=== PATIENT | female | born 1985 | race Caucasian/White ===

== ENCOUNTER → 2016-09-08 | Outpatient (CLI) | payer OTHER ==
[~2016-09-08] MED LIST: ACETAMINOPHEN PO; AUGMENTIN875 MG PO; CLINDAMYCIN HC300 MG PO; DIPHENYDRAMINE25 MG PO; FLEXERIL PO; FLEXERIL10 MG PO; HYDROCODON-ACE1 EAC5 PO; HYDROCODON-ACE1 EAC7 PO; IBUPROFEN PO; INTUNIV3 MG PO; KEFLEX500 MG PO; MEDROL PO; NEURONTIN300 MG PO; NEURONTIN600 MG PO; NO MEDICATIONS; ORUDIS75 M1 PO; TIZANIDINE HCL2 MG PO; TOPIRAMATE100 MG PO; ULTRAM PO; VIBRAMYCIN100 M1 PO; VICODIN 5/500 T1 TAB PO; VOLTAREN50 MG PO; VOLTAREN75 MG PO; WELLBUTRIN XL150 M1 PO
--- NOTE | ~2016-09-08 | CR63 ---
[facility] A Service of [facility] RADIOLOGY TEXT RESULTS PATIENT: SEAN LOPEZ LOCATION: [facility] : 81 UNIT #: [id number] AGE: [address]: David Sexton MD SEX: F ORDER DR: [id number] [facility] [address] [place], [place] [address] [id number] O MR#: [id number] Acc #: [id number] NAME: SEAN LOPEZ. : 1985 SEX: F STUDY DATE/TIME: 09/08/2016 12:08 UNIT: [facility] ROOM: STUDY DESCRIPTION: CR Chest 2 View Attending Physician: David Sexton M.D. Referring Physician: David Sexton M.D. Ordering Physician: David Sexton M.D. Primary Care Physician: Brent Bedoya M.D. MEDICAL IMAGING REPORT This report is preliminary unless electronic signature is present EXAM Chest, PA and lateral. DATE OF EXAM 09/08/2016 HISTORY Productive cough, shortness of breath on exertion and wheezing for 1 year. Chest congestion. Benign essential hypertension. FINDINGS PA and lateral examination of the chest upright shows a good expansion of the parenchyma with a normal distribution of the pulmonary vascularity. There is no indication of congestion, effusion, infiltrate, tumor, or nodular density. The pleural reflections and diaphragmatic contours are normal. The cardiac silhouette and mediastinal anatomy is within normal limits. IMPRESSION Normal chest. Dictated by... Quang Jaime M.D. THIS IS AN ELECTRONICALLY VERIFIED REPORT Quang Jaime M.D. at 09/09/2016 7:48 AM IHSAN/kathy TD: 09/08/2016 16:42 [facility] A Service of [facility] RADIOLOGY TEXT RESULTS PATIENT: SEAN LOPEZ [facility] [id number] : 81 UNIT #: [id number] AGE: [address]: David Sexton MD SEX: F ORDER DR: JOB #: [id number] MEDICAL IMAGING REPORT Page 1 of 1 COPY
== END | disposition home or self-care (01) ==
LOC: CRAD 11:28
DX: R05 Cough (principal); I10 Essential (primary) hypertension
CPT/HCPCS: 71020

== ENCOUNTER → 2016-09-17 | Outpatient (CLI) | payer OTHER ==
--- NOTE | ~2016-09-17 | US98 ---
[facility] A Service of [facility] RADIOLOGY TEXT RESULTS PATIENT: SEAN LOPEZ LOCATION: [facility] : 83 UNIT #: [id number] AGE: [address]: SENA BLAIR SEX: F ORDER DR: [id number] [facility] [address] [place], [place] [address] [id number] O MR#: [id number] Acc #: [id number] NAME: SEAN LOPEZ. : 1985 SEX: F STUDY DATE/TIME: 09/17/2016 11:09 UNIT: [facility] ROOM: STUDY DESCRIPTION: US Pelvic Non-OB Complete Attending Physician: Sena Blair M.D. Ordering Physician: Sena Blair M.D. Primary Care Physician: Lyndsey Bedoya M.D. MEDICAL IMAGING REPORT This report is preliminary unless electronic signature is present EXAM Pelvic ultrasound. INDICATION Abnormal MRI which was performed 3 weeks ago at [facility] showed an ovarian cyst. Patient also reports left lower quadrant pain for 10 years. Last normal menstrual period was August 19, 2016 TECHNIQUE Bucio-scale, color Doppler, and spectral Doppler waveform analysis was performed through the pelvis both transabdominally and transvaginally. FINDINGS This patient's endometrium is thickened, measuring up to 1.9 cm. There is also some fluid seen within the endometrial canal. This is thickened even for a 31-year-old woman. Left ovary contains a complex predominantly cystic structure which measures up to 2.7 x 2.4 x 2.3 cm. Its appearance is most in keeping with a hemorrhagic cyst on the right ovary which is seen only on transvaginal images. This patient is noted to have a hypoechoic area which appears to be solid and is accompanied by extensive shadowing. Clinical significance is uncertain. Its appearance is not classic for a dermoid cyst, although certainly this would be in the differential. It measures 1.1 x 1.2 x 1.2 cm. No free fluid is seen within the cul-de-sac. IMPRESSION 1. Hypoechoic solid appearing area is identified within the right ovary with extensive shadowing noted. Clinical significance is uncertain. A dermoid cyst would be in the differential, although again this is a solid appearing lesion. Further evaluation with pelvic MRI is recommended. 2. This patient has an apparent hemorrhagic cyst arising from the left ovary. This could also be further assessed with pelvic MRI. [facility] A Service of [facility] RADIOLOGY TEXT RESULTS PATIENT: SEAN LOPEZ LOCATION: [facility] : 83 UNIT #: [id number] AGE: [address]: SENA BLAIR SEX: F ORDER DR: 3. Patient's endometrium does appear thickened even for a 31-year-old woman. This may simply be related to stage of menstrual cycle, however, again attention to it on a pelvic MRI is suggested. Dictated by... Francie Santacruz M.D. THIS IS AN ELECTRONICALLY VERIFIED REPORT Francie Santacruz M.D. at 09/20/2016 4:49 PM AFF/rui TD: 09/17/2016 17:08 JOB #: [id number] MEDICAL IMAGING REPORT Page 1 of 1 COPY
== END | disposition home or self-care (01) ==
LOC: CWCC 10:58
DX: N83.209 Unspecified ovarian cyst, unspecified side (principal); N83.9 Noninflammatory disorder of ovary, fallopian tube and broad ligament, unspecified; N83.202 Unspecified ovarian cyst, left side; R93.8 Abnormal findings on diagnostic imaging of other specified body structures
CPT/HCPCS: 76830; 76856

== ENCOUNTER 2016-09-21 14:48 | Emergency (ER) | payer OTHER ==
--- NOTE | ~2016-09-21 | CR142 ---
[facility] A Service of [facility] RADIOLOGY TEXT RESULTS PATIENT: SEAN LOPEZ LOCATION: [facility] : 83 UNIT #: [id number] AGE: [address]: Natalia Jaimes MD SEX: F ORDER DR: [id number] [facility] [address] [place], [place] [address] [id number] MR#: [id number] Acc #: [id number] NAME: SEAN LOPEZ. : 1985 SEX: F STUDY DATE/TIME: 09/21/2016 16:04 UNIT: [facility] ROOM: STUDY DESCRIPTION: CR Hand Min 3 Views Rt Attending Physician: Natalia Jaimes M.D. Referring Physician: Kory Gonzalez M.D. Ordering Physician: Jose Angel Hannah M.D. Primary Care Physician: Lyndsey Bedoya M.D. MEDICAL IMAGING REPORT This report is preliminary unless electronic signature is present EXAM Right hand series, 09/21/2016. HISTORY Trauma, punched glass in hospital cafe. Laceration. Pain, bleeding, evaluate for foreign body. Possible glass. FINDINGS AP lateral and oblique radiographs of the right hand are presented. No traumatic fracture or malalignment. The joint spaces are intact. There is extensive bandaging material overlying the hand circumferentially. Superimposed over palmar aspect of hand between the second and third metacarpal bones on the AP view there is an approximately 2 to 4 mm radiodensity. On the lateral view, it is somewhat unclear if this is along the skin surface or deep to the skin surface. The appearance is concerning for possible small foreign body/glass fragment. Please correlate with exam. There is a linear, approximately 2 mm radiodensity on the skin surface along the ulnar aspect of the fifth digit at level of the proximal phalanx. There are radiodensities projecting over the distal fourth digit, ulnar aspect of the nail bed and palmar aspect of distal digit on lateral view. It is possible that these radiodensities associated with the fourth and fifth digits may be within the bandaging material. Please correlate with exam. Consider reassessment with removal of bandaging material. No subcutaneous air is suggested. Dictated by... Nicanor Livingston M.D. THIS IS AN ELECTRONICALLY VERIFIED REPORT Nicanor Livingston M.D. at 09/22/2016 10:25 PM DAPHNEYK/kathy [facility] A Service of [facility] RADIOLOGY TEXT RESULTS PATIENT: SEAN LOPEZ LOCATION: [facility] : 81 UNIT #: [id number] AGE: [address]: Natalia Jaimes MD SEX: F ORDER DR: TD: 09/21/2016 23:22 JOB #: [id number] MEDICAL IMAGING REPORT Page 1 of 1 COPY
[2016-09-21 16:05] LABS: URINE SOURCE CLEAN CATCH
[2016-09-21 16:15] LABS: URINE APPEARANCE CLEAR; URINE BILIRUBIN NEG (NEG); URINE BLOOD NEG (NEG); URINE COLOR YELLOW; URINE GLUCOSE NEG (NEG); URINE KETONE NEG (NEG); URINE LEUKOCYTE ESTERASE NEG (NEG); URINE NITRATE NEG (NEG); URINE PROTEIN 1+ (NEG); URINE SPECIFIC GRAVITY 1.041 (1.003-1.035)
[2016-09-21 16:17] LABS: CULTURE INDICATED? YES; URINE BACTERIA AUWI 1+ (NEGATIVE); URINE SQUAMOUS EPITHELIAL CELL OCC /[HPF]
[2016-09-21 16:26] LABS: AMPHETAMINE NEG (NEG); BARBITURATES NEG (NEG); BENZODIAZEPINES NEG (NEG); COCAINE NEG (NEG); MARIJUANA NEG (NEG); OPIATES POS (NEG); TRICYCLIC ANTIDEPRESSANTS NEG (NEG); U METHADONE NEG (NEG)
[2016-09-21 16:46] LABS: BASOPHIL# 0.1 X10e3 (0-0.3); BASOPHIL% 0.4 % (0-2.5); EOSINOPHIL% 0.1 % (0.0-7.0); HEMATOCRIT 41.3 % (35.0-45.0); HEMOGLOBIN 13.3 gm/dL (12.0-16.0); LYMPHOCYTE# 1.2 X10e3 (1.0-3.5); LYMPHOCYTE% 9.1 % (17.0-45.0); MEAN CORPUSCULAR HGB CONC 32.3 g/dL (30-36); MEAN PLATELET VOLUME 9.2 FL (6.5-11.5); MONOCYTE# 0.6 X10e3 (0-1.0); MONOCYTE% 4.9 % (3.0-12.0); NEUTROPHIL% 85.5 % (40-75); PLATELET COUNT 183 X10e3 (140-420); RED BLOOD COUNT 4.43 X10e (3.90-5.30); RED CELL DISTRIBUTION WIDTH 13.4 % (11.0-15.5); WHITE BLOOD COUNT 12.8 X10e3 (4.0-10.5)
[2016-09-21 16:47] LABS: DIFF IND NO
[2016-09-21 17:09] LABS: ALBUMIN SERUM 4.2 g/dL (3.5-5.0); ALKALINE PHOSPHATASE 64 U/L (32-92); ALT (SGPT) 33 U/L (10-40); AST (SGOT) 24 U/L (10-42); BILIRUBIN,TOTAL 0.7 mg/dL (0.2-2.0); BLOOD UREA NITROGEN 7 mg/dL (9-23); CALCIUM SERUM 8.4 mg/dL (8.4-10.2); CARBON DIOXIDE 20 mmol/L (22-31); CHLORIDE 109 mmol/L (100-111); CREATININE SERUM 0.4 mg/dL (0.6-1.4); GLOM FILT RATE Estimated 136.9 mL/min (>60); GLUCOSE FASTING 99 mg/dL (70-110); POTASSIUM 3.5 mmol/L (3.5-5.1); PROTEIN TOTAL SERUM 7.5 g/dL (6.0-8.3); SALICYLATE <4.0 mg/dL; SODIUM 136 mmol/L (135-145)
[2016-09-21 17:11] LABS: ACETAMINOPHEN <10 ug/mL; ALCOHOL BLOOD <5 mg/dL (0); BILIRUBIN, DIRECT <0.1 mg/dL (0.0-0.2); BILIRUBIN,INDIRECT 0.6 mg/dL (0.0-0.9)
== END 2016-09-21 23:36 ==
LOC: CED 14:48
PROVIDERS: Emergency Medicine
DX: S61.411A Laceration without foreign body of right hand, initial encounter (principal); T48.3X2A Poisoning by antitussives, intentional self-harm, initial encounter; F11.10 Opioid abuse, uncomplicated; F32.9 Major depressive disorder, single episode, unspecified; F17.200 Nicotine dependence, unspecified, uncomplicated; Z98.890 Other specified postprocedural states; X78.8XXA Intentional self-harm by other sharp object, initial encounter; Y92.9 Unspecified place or not applicable
CPT/HCPCS: 12002; 36415; 73130; 80048; 80076; 80307; 81003; 84703; 85025; 87086; 96360; 99285; G0480

== ENCOUNTER 2016-09-21 19:00 | Inpatient (IN) | payer OTHER ==
--- NOTE | ~2016-09-21 | PN ---
Unit #: [id number] #: [id number] Patient: SEAN LOPEZ [id number] [facility] [address] [place] [address] [id number] I MR#: [id number] NAME: SEAN LOPEZ. ROOM: P110 Age: 31 Sex: F Admission Date: 09/22/2016 : 1985 Attending Physician: Aruna Curry M.D. Admitting Physician: Aruna Curry M.D. Primary Care Physician: Ronald Garcia PROGRESS NOTES DATE OF SERVICE: 09/23/2016 SUBJECTIVE Ms. Lopez is a 31-year-old white female with mood disorder, who was seen today and chart was reviewed, and case was discussed with the staff. She appears to be doing much better, and showing significant improvement in her cognitive functioning and her social interacting, asking questions and expressing her concerns. Meanwhile, she has been taking medications and tolerating them fairly well with no reported side effects. MENTAL STATUS EXAMINATION Young white female, who was casually dressed with a fair personal hygiene, appears to be in no acute distress or discomfort. She was awake and alert on interaction with intact orientation. Her mood was anxious with a congruent affect. She denies any suicidal or homicidal ideations. Her insight and judgment remain slightly impaired. TREATMENT PLAN 1. We will continue her on her current medications and treatment protocol. We will monitor her response to the medications and make further adjustments as needed. 2. We will continue to follow up. Dictated by... Ronald Gonzalez/rajni TD: 09/24/2016 08:02 JOB #: [id number] [facility] PROGRESS NOTES Page 1 of 1 X Aruna Curry MD PROGRESS NOTE
--- NOTE | ~2016-09-21 | DS ---
Unit #: [id number] #: [id number] Patient: SEAN LOPEZ [id number] [facility] [address] [place] [address] [id number] I MR#: [id number] NAME: SEAN LOPEZ. ROOM: P110 Age: 31 Sex: F Admission Date: 09/22/2016 : 1985 Discharge Date: 09/25/2016 Attending Physician: Aruna Curry M.D. Primary Care Physician: Lyndsey Bedoya M.D. DISCHARGE SUMMARY IDENTIFYING DATA Ms. Lopez is a 31-year-old, single, white female who is a resident of [place], [place], and was self-referred to the hospital on a voluntary basis. DISCHARGE DIAGNOSES Psychiatric: Bipolar disorder, most recent episode depressed, recurrent, moderate, with psychosis. Medical: Ovarian cyst. Stressors: Moderate psychosocial stressors. HISTORY OF PRESENT ILLNESS Please see initial psychiatric evaluation for details. PAST PSYCHIATRIC HISTORY Please see initial psychiatric evaluation for details. PAST MEDICAL HISTORY Please see initial psychiatric evaluation for details. HOSPITAL COURSE The [facility] and was oriented to the hospital environment. Routine p.r.n. medications were initiated and she was started back on her home medications including her Wellbutrin and Risperdal 0.5 mg b.i.d. was started and she was initially seen to be exhibiting bizarre behavior, though was able to show a fairly decent therapeutic response to Risperdal with improvement in her psychosis and cognitive functioning, and was calm and cooperative and compliant with treatment recommendations, and was willing to continue treatment on an outpatient basis and as such, it was decided that she will be discharged home and will continue treatment on an outpatient basis. DISCHARGE MEDICATIONS Wellbutrin XL 450 mg in the morning for depression and Risperdal 0.5 mg b.i.d. DISCHARGE CONDITION Stable. PROGNOSIS Fair. Unit #: [id number] #: [id number] Patient: SEAN LOPEZ Dictated by... Ronald Gonzalez/cammyl TD: 09/25/2016 15:41 JOB #: [id number] DISCHARGE SUMMARY Page 1 of 1 X Aruna Curry MD DISCHARGE SUMMARY
--- NOTE | ~2016-09-21 | HP ---
Unit #: [id number] #: [id number] Patient: SEAN LOPEZ [id number] [place] [address] [id number] MR#: [id number] NAME: SEAN LOPEZ. ROOM: P110 Age: 31 Sex: F Admission Date: 09/22/2016 : 1985 Attending Physician: Aruna Curry M.D. Admitting Physician: Aruna Curry M.D. Primary Care Physician: Lyndsey Bedoya M.D. HISTORY AND PHYSICAL ADDENDUM SKIN: Warm and dry without rash. She has multiple abrasions and cuts to her right hand and arm. There are sutures placed along the posterior aspect of the hand. There is good skin approximation. No increased redness, swelling, heat or pus is noted. Neurovascular intact. PLAN Keep these areas clean with soap and water. Apply triple antibiotic ointment and apply loose dressing daily. Suture removal in 7 to 10 days. Dictated by... Bárbara RichardACynthia. for Ronald Hendricks/didi TD: 09/22/2016 22:55 JOB #: [id number] HISTORY AND PHYSICAL Page 1 of 1 X Daria Chacon HISTORY AND PHYSICAL
--- NOTE | ~2016-09-21 | PN ---
Unit #: [id number] #: [id number] Patient: SEAN LOPEZ [id number] [facility] [address] [place] [address] [id number] I MR#: [id number] NAME: SEAN LOPEZ. ROOM: P110 Age: 31 Sex: F Admission Date: 09/22/2016 : 1985 Attending Physician: Aruna Curry M.D. Admitting Physician: Aruna Curry M.D. Primary Care Physician: Ronald Garcia PROGRESS NOTES DATE OF SERVICE 09/24/2016 DISCUSSION Ms. Lopez is a 31-year-old white female with mood disorder who was seen today. Chart was reviewed and case was discussed with the staff. She has been anxious, withdrawn, and appears to be doing better and has been calm and cooperative with the treatment recommendations and has been taking the medications and tolerating them fairly well with no reported side effects. MENTAL STATUS EXAMINATION Young white female who is casually dressed with fair personal hygiene, appears to be in no acute distress or discomfort. She was awake and alert on interaction with intact orientation. Her mood is anxious with congruent affect. She denies any suicidal or homicidal ideations. Her insight and judgment remain slightly impaired. TREATMENT PLAN 1. We will continue her on her current treatment protocol. We will monitor her response to the medications and make further adjustments as needed. 2. We will continue to follow up. Dictated by... Ronald Gonzalez/bzg TD: 09/25/2016 08:06 JOB #: [id number] [facility] PROGRESS NOTES Page 1 of 1 X Aruna Curry MD X PROGRESS NOTE
--- NOTE | ~2016-09-21 | HP ---
Unit #: [id number] #: [id number] Patient: SEAN LOPEZ [id number] [place] [address] [id number] I MR#: [id number] NAME: SEAN LOPEZ. ROOM: P110 Age: 31 Sex: F Admission Date: 09/22/2016 : 1985 Attending Physician: Aruna Curry M.D. Admitting Physician: Aruna Curry M.D. Primary Care Physician: Lyndsey Bedoya M.D. HISTORY AND PHYSICAL HISTORY OF PRESENT ILLNESS Sean is a 31 year old admitted to [address] [place] [address] with depression and after overdosing on cough medication. She was medically cleared at [facility] emergency room and then transferred to [facility] for psychiatric care. PAST MEDICAL HISTORY Morbid obesity. PAST SURGICAL HISTORY Nothing reported. ALLERGIES No known drug allergies. SOCIAL HISTORY Smokes 1 pack per day. Denies alcohol and illicit drug use. FAMILY HISTORY Medically noncontributory. REVIEW OF SYSTEMS CONSTITUTIONAL: No fever or chills. HEENT: Denies any sore throat, ear pain or runny nose. CARDIOVASCULAR: Denies chest pain, irregular heart rhythm or palpitations. CHEST: Denies shortness of breath or cough. No hemoptysis. GASTROINTESTINAL: Denies nausea, vomiting, diarrhea or chronic constipation. ENDOCRINE: Denies history of increased thirst or urination. No recent significant weight loss or gain. GENITOURINARY: Denies dysuria, frequency, or hematuria. SKIN: Denies any rashes. HEMATOLOGIC: Denies history of increased bleeding or bruising. MUSCULOSKELETAL: Denies any hot, swollen joints. No generalized muscle pain. NEUROLOGIC: Denies problems with vision or speech. No frequent, severe headaches. No numbness, tingling or weakness in any extremities. Denies loss of bladder or bowel control. CURRENT MEDICATIONS 1. Wellbutrin 300 mg q.a.m., 150 mg q.h.s. 2. Neurontin 400 mg q.i.d. 3. Ultram 50 mg t.i.d. 4. Risperdal 0.5 mg b.i.d. Unit #: [id number] #: [id number] Patient: SEAN LOPEZ 5. Vistaril p.r.n. 6. Desyrel p.r.n. 7. Milk of Magnesia p.r.n. 8. Maalox p.r.n. 9. Tylenol p.r.n. PHYSICAL EXAMINATION GENERAL: Alert, morbidly obese, in no apparent distress. VITAL SIGNS: Blood pressure 150/90, heart rate 80, respirations 16, temperature 98.6. WEIGHT: 272. HEIGHT: 5 feet 6 inches. SKIN: Warm and dry without rash. She has cuts and abrasions to her right hand and arm sustained prior to this admission. There is no increased redness, swelling, heat or pus noted. HEENT: Normocephalic. TMs not viewed. Oral and nasal passages clear. Conjunctivae clear. PERRLA. EOMs intact. NECK: Supple without lymphadenopathy or thyromegaly. HEART: Regular rate and rhythm without murmur. LUNGS: Clear. ABDOMEN: Soft, nontender. : Not done. EXTREMITIES: No evidence of cyanosis, clubbing or edema. Moves all without focal deficit. NEUROLOGICAL: Grossly within normal limits. Cranial Nerves: II: Visual avery are intact. III, IV AND : Extraocular movements are intact. Pupils are equal, round and reactive to light. V: Facial sensation is grossly normal. VII: Facial movements and expression are normal. VIII: Auditory acuity grossly intact. IX, X: Uvula is midline. Phonation is normal. XI: Patient shrugs shoulders and turns head normally. XII: Tongue protrudes in the midline. Sensory and Motor Function: Sensory and motor sensation is grossly normal. Motor: moves all extremities well. Coordination: Gait is normal. Deep Tendon Reflexes: Intact. IMPRESSION 1. Psychiatric admission. 2. Injury sustained to her hand and arm prior to admission. RECOMMENDATIONS PSYCHIATRIC: Per psychiatrist. MEDICAL: 1. See no contraindications to participate in facility's activities. 2. Keep the area clean with soap and water. Apply triple antibiotic ointment and apply a loose dressing daily. MEDICAL PROGNOSIS Good. MEDICAL CONDITION Stable. Dictated by... Unit #: [id number] #: [id number] Patient: SEAN LOPEZ Daria Chacon P.A.-C. for Ronald Hendricks/didi TD: 09/22/2016 22:25 JOB #: [id number] HISTORY AND PHYSICAL Page 1 of 1 X Daria Chacon HISTORY AND PHYSICAL
--- NOTE | ~2016-09-21 | PA ---
Unit #: [id number] #: [id number] Patient: SEAN LOPEZ [id number] [facility] [address] [place] [address] [id number] I MR#: [id number] NAME: SEAN LOPEZ. ROOM: P110 Age: 31 Sex: F Admission Date: 09/22/2016 : 1985 Date of Assessment: 09/22/2016 Attending Physician: Aruna Curry M.D. Admitting Physician: Aruna Curry M.D. Primary Care Physician: Lyndsey Bedoya M.D. PSYCHIATRIC ASSESSMENT DATE OF SERVICE 09/22/2016. IDENTIFYING DATA Ms. Lopez is a 31-year-old, single, white female, who is a resident of [place], [place], and was self-referred to the hospital on voluntary basis. CHIEF COMPLAINT "I had a cough medication equivalent to a bottle this evening." HISTORY OF PRESENT ILLNESS Ms. Lopez is a 31-year-old white female with mood disorder, who was self-referred to the hospital reporting having overdosed on cough medication and reports that she has been anxious and was reportedly according to her "out of it." The patient reports being paranoid while being at the emergency room and reports that she attempted to run away from the ER due to paranoia and reports anxiety has subsided since the original ER visit and reports increasing stressors at home and with her medical conditions. Reports history of depression and anxiety and does report feelings of hopelessness and helplessness. ER at [facility] reported the patient overdosed on cough medication. While being triaged at the hospital, the patient ran into the ER and climbed wall and fell through the window on the loading dock and was medically cleared and transferred to us as she was seen to be quite disorganized, bizarre, impulsive and danger to herself her. SUBSTANCE ABUSE HISTORY The patient denies any ongoing alcohol or drug abuse. PAST PSYCHIATRIC HISTORY The patient reports history of psychiatric treatment at [facility] and review of the medical records indicate that currently she is on a combination of psychotropic medication, though it is not clear if she has been compliant with the medications. PAST MEDICAL HISTORY The patient's medical history is significant for ovarian cyst. ALLERGIES No known medication allergies. Unit #: [id number] #: [id number] Patient: SEAN LOPEZ PERSONAL AND SOCIAL HISTORY A 31-year-old white female, who reports that she lives with her partner and her 2 children and reports having fairly decent social support system. MENTAL STATUS EXAMINATION Young white female, who was casually dressed with fair personal hygiene, appears to be in no acute distress or discomfort. She was awake and alert on interaction with intact orientation to time, place, and person. Her mood was anxious and depressed with a congruent affect. Her speech was slow and restricted in content. She reports having suicidal ideations, but denies any homicidal ideations. Her thought processes were disorganized with some looseness of associations. Her insight and judgment remain significantly impaired. DIAGNOSTIC IMPRESSION Psychiatric: Bipolar disorder, most recent episode depressed, recurrent, moderate, with psychosis. Medical: Ovarian cyst. Stressors: Moderate psychosocial stressors. TREATMENT PLAN 1. The patient has presented with a history of mood disorder suggestive of bipolar disorder with impulsivity, irritability, mood swings, and disorganized thoughts, speech and behavior and persistent psychosis and to my surprise she is taking quite a bit of narcotics as she is on [place] 10 mg five times a day in addition to tramadol and I could not verify the reason as she is on as she sees Dr. Bedoya as her outpatient provider, but the only diagnosis I could see in her medical records is ovarian cyst, which does not really justify, as such huge amount of opioids and the patient does appear to have treatment at [facility] for chemical dependency in the past. I am not sure if her behavior in the emergency room has anything to do with her substance abuse issues. However, we would like to hold off on [place] at this time until I get more information as to the nature why that medication is prescribed in such a high dose. Meanwhile, we will recommend initiating a mood stabilizer and we will monitor response. 2. Supportive therapy was provided to the patient. 3. Safe, structured, and nourishing environment will be provided. ESTIMATED LENGTH OF STAY 5 to 7 days. ABILITY TO HELP SELF Limited. WILLINGNESS TO HELP SELF The patient appears to be willing to help self. STRENGTHS 1. Communicative. 2. Cooperative. PROBLEMS 1. Chronic dysphoric symptoms. 2. Poor social support system. Unit #: [id number] #: [id number] Patient: SEAN LOPEZ DISCHARGE CRITERIA This will be contingent upon the patient's ability to show resolution of her depression and psychosis and her ability to stay safe to herself, particularly after discharge from the hospital. Dictated by... Ronald Gonzalez/rajni TD: 09/22/2016 07:41 JOB #: [id number] PSYCHIATRIC ASSESSMENT Page 1 of 1 X Aruna Curry MD X PSYCHIATRIC ASSESSMENT
== END 2016-09-25 11:17 | disposition home or self-care (01) | DRG 885 ==
LOC: P1S 09-22 00:47
DX: F31.5 Bipolar disorder, current episode depressed, severe, with psychotic features (principal); E66.01 Morbid (severe) obesity due to excess calories; N83.209 Unspecified ovarian cyst, unspecified side; F17.210 Nicotine dependence, cigarettes, uncomplicated; Z68.33 Body mass index [BMI] 33.0-33.9, adult

== ENCOUNTER → 2016-10-26 | Outpatient (CLI) | payer OTHER ==
--- NOTE | ~2016-10-26 | MR151 ---
[facility] A Service of [facility] RADIOLOGY TEXT RESULTS PATIENT: SEAN LOPEZ [facility] 81 UNIT #: [id number] AGE: [address]: Brent Bedoya MD SEX: F ORDER DR: [id number] [facility] [address] [place], [place] [address] [id number] O MR#: [id number] #: [id number] NAME: SEAN LOPEZ. : 1985 SEX: F STUDY DATE/TIME: 10/26/2016 13:20 UNIT: [facility] ROOM: STUDY DESCRIPTION: MR Pelvis WWo Contrast Attending Physician: Brent Bedoya M.D. Referring Physician: Brent Bedoya M.D. Ordering Physician: Brent Bedoya M.D. Primary Care Physician: Lyndsey Bedoya M.D. MRI CENTER REPORT This report is preliminary unless electronic signature is present. EXAM MR pelvis INDICATIONS Left ovarian cyst. Hemorrhagic cyst. Dermoid cyst. Abnormal pelvic ultrasound. Right ovarian mass. TECHNIQUE Multiplanar MRI of the pelvis with and without contrast (20 mL MultiHance IV contrast). COMPARISON Pelvic ultrasound 09/17/2016 and MR [facility] pelvis 08/16/2016 FINDINGS The uterus measures 9.6 cm x 4.6 cm x 7.1 cm. There is homogeneous appearance of the endometrium. The uterine junctional zone is thickened along the posterior fundus measuring up to 1.7 cm. This would indicate a focal area of adenomyosis. The uterus is anteverted. No abnormal enhancing mass or lesions identified in the uterus. Left ovary is normal measuring up to 3.3 cm. The previously documented hemorrhagic cyst has resolved. In the right ovary, there is a benign follicular cyst measuring 2.4 cm. There is a second lesion along the posterior margin of the ovary measuring 3 cm x 1.1 cm x 2.2 cm. This area is uniformly hypointense on the T2-weighted sequences and hypointense on the T1-weighted sequences. There is no significant enhancement following administration of contrast. This lesion probably represents an ovarian fibroma, however does not have the classic imaging features (no significant enhancement). A precautionary followup pelvic ultrasound or MR would be recommended in 6 months. [facility] A Service of [facility] RADIOLOGY TEXT RESULTS PATIENT: SEAN LOPEZ LOCATION: [facility] : 81 UNIT #: [id number] AGE: [address]: Brent Bedoya MD SEX: F ORDER DR: There is a small volume of free fluid the pelvis which is likely physiologic. The bladder is unremarkable. No enlarged pelvic or inguinal lymph nodes. IMPRESSION 1. Resolution of the left ovarian hemorrhagic cyst. 2. A 3 cm lesion in the right ovary has imaging features most consistent with an ovarian fibroma, however, the lack of enhancement is somewhat unusual. Given the lack of classic features, would recommend a precautionary followup ultrasound or MRI within 6 months. 3. Focal widening of the uterine junctional zone along the posterior fundus consistent with focal uterine adenomyosis. 4. Small volume of free fluid is likely physiologic. Dictated by... Doug Chapman M.D. THIS IS AN ELECTRONICALLY VERIFIED REPORT Doug Chapman M.D. at 10/27/2016 8:41 AM RADHA/laila TD: 10/26/2016 22:39 JOB #: [id number] MRI CENTER REPORT Page 1 of 1 COPY
== END | disposition home or self-care (01) ==
LOC: CMRI 12:48
DX: N83.202 Unspecified ovarian cyst, left side (principal); N83.8 Other noninflammatory disorders of ovary, fallopian tube and broad ligament
CPT/HCPCS: 72197; A9577